=== PATIENT | female | born 1965 | race Caucasian/White ===

== ENCOUNTER 2017-01-08 06:11 | Observation (INO) | payer BC ==
[2017-01-08] VITALS (15 sets, daily range): BP systolic 99–124; BP diastolic 52–69
[~2017-01-08] VITALS: Ht 170.2 cm; Wt 83.6 kg
[~2017-01-08 06:11] MED LIST: AEROCHAMBER1 DEV IH; ALBUTEROL2 PUFFS/17 IN; ESTRACE 2MG. TAB2 MG PO; FLONASE 50 MCG16 GM; MEDROL 4MG. DOSE4 MG PO; MOTRIN 400MG.400 MG PO; MOTRIN 600MG.600 MG PO; NAPROSYN500 M1 PO; NOMEDS *; PERCOCET 5/3251 EACH PO; SULFAMETHOXAZOL1 TA6 PO; ZITHROMAX Z PA250 MG PO; ZOFRAN4 MG PO
--- NOTE | 2017-01-08 09:11 | Operative Note ---
Procedure/Operative Record Procedure Date of procedure: 01/08/17 Pre-Op Dx: Cystocele rectocele, enterocele, vaginal vault prolapse after hysterectomy Post-Op Dx: Cystocele, rectocele, enterocele, vaginal vault prolapse after hysterectomy. Procedure performed: Vaginal vault prolapse, enterocele repair, rectocele repair. Surgeon: Dr. Adam Ashton Stock Mover(s): Vijaya Alejandro Anesthesia: Brandon Long EBL (ml): 250 Clinical note: She is a 51-year-old lady who had an LAVH approximately 3 years ago. She noticed that she had some bulging in the vagina. We attempted to use a pessary however this did not work for her rectocele. As result of that she was offered vaginal vault suspension, enterocele repair, cystocele repair and rectocele repair. Operative findings: She had a grade 2-3 rectocele. She had a large enterocele. The vaginal vault had 's a small amount of prolapse and she just had a grade 1 cystocele. As result of this I elected not to do a cystocele repair. Operative note: She was taken to the operating room where LMA anesthesia was found be adequate. She was prepped and draped in the normal sterile fashion in the lithotomy position. A weighted speculum was placed in vagina. I grasped the anterior vaginal mucosa where the old hysterectomy scar was at the vaginal vault. I then injected approximately 20 mL of 1 percent Xylocaine with epinephrine along the vaginal mucosa. I then made a V shaped incision on the outside of each clamp and joined the 2 incisions anteriorly along the vaginal mucosa. I then opened up posteriorly with Metzenbaum scissors. I then made a wedge shaped incision. I then opened up into the peritoneal cavity within the enterocele sac. I then packed away the bowel with a warm moist pack. The bladder was then dissected off the scar anteriorly. A Simin retractor was placed here to push the bladder out of the way. I then dissected off the vaginal mucosa from the LEFT cardinal ligament. I then palpated the ureter on the LEFT side against the Simin retractor at the 3 o' clock position. I then clamped across the cardinal ligament cut this and suture ligated. It was tagged as well. I then removed the enterocele sac posteriorly. I then grasped the LEFT uterosacral ligament clamp this and cut it. This was then suture-ligated and tagged. Similarly on the patient's RIGHT side I dissected the vaginal mucosa off the cardinal ligament. I then placed my finger through the vagina and palpated the ureter against the Simin retractor in the 9 o'clock position. I then clamped across the cardinal ligament. The redundant tissue was then cut away. This was then suture-ligated and tagged. Similarly I grasped the RIGHT uterosacral ligament this was then cut and suture ligated and tagged. I then placed a Degroot suture using 0 PDS first through the LEFT pararectal fascia. I plicated across the posterior peritoneum and through the RIGHT pararectal fascia. This was then LEFT to be tied. I then placed a similar suture slightly above the suture. I then placed an external Degroot first going through the vaginal mucosa through the LEFT pararectal tissue slightlysuperior to the other 2 Degroot sutures and then out through the vagina mucosa again. Once again this was LEFT to be tied at the end. I then closed the vaginal vault by first grasping the vaginal mucosa anterior at the fornix and including the distal end of the cardinal ligament in this suture. This was then passed through the posterior aspect of the vaginal mucosa and tied. A second suture was placed more medial to the first suture. This was similarly performed on the patient's RIGHT side. I then observed the bladder anteriorly and she just had a very small cystocele so elected not to repair this. I then tied the Degroot sutures in the order in which there were placed.I placed 2 further interrupted sutures of 2-0 Vicryl suture to close the vaginal vault completely. I grasped the posterior vaginal mucosa where the weighted speculum had LEFT [place]. I then made a V-shaped incision into the perineum. I grasped the perineal and vaginal mucosa and using Metzenbaum scissors dissected off a 7 m wide strip of vaginal mucosa dissecting the rectum off the posterior vaginal mucosa. I then joined up with the wedge shaped piece of tissue I previously removed from the vaginal vault. I started with a 2-0 Vicryl suture and placed this at the vaginal vault. Using 2 -0 PDS suture I placed individual sutures into the levator ani muscle bilaterally. Each individual suture was then tied and sutures were placed along the posterior vagina. This closed her rectocele. I placed sutures until I reached the vaginal opening. I then ran the 2-0 Vicryl suture in a running locked fashion and tied it at the vaginal opening. I then closed the deep tissues of the perineum using interrupted 2-0 PDS suture. The perineal skin was then closed with interrupted subcuticular 2-0 Vicryl suture. A Middleton catheter was then placed in the bladder. Clear urine was seen to flow. I then placed a vaginal pack soaked in Hibiclens into the vagina. The patient tolerated the procedure well and was taken to the recovery room in excellent condition. All sponge instrument and needle counts were correct. Estimate a blood loss was approximately 250 mL. Conplications: None Specimens: None at 0911
--- NOTE | 2017-01-08 09:13 | Anesthesia Record ---
Anesthesia Record Part II Discharge time: 934 Destination: Second Floor PACU nurse assessment review? Yes Patient is: Awake, Stable Anesthesia complications? No at 0913
--- NOTE | 2017-01-08 09:13 | Anesthesia Record ---
Anesthesia Record Part I Total IV fluids: 800 EBL (ml): 250 Urine Output: 50 B/P: 119/52 % SaO2: 96 Pulse: 60 Resps: 10 Temp: 97.5 Patient is: Awake, Stable Stable to PACU at: 0905 at 0913
[2017-01-08] MEDS ORDERED: ESTRADIOL1 MG OR (10:14)
[2017-01-08] MEDS ORDERED: SPIRONOLACTONE25 MG NG (10:15)
[2017-01-08 16:13] LABS: HEMOGLOBIN 12.9 g/dL (12.2-16.2)
[2017-01-08 20:16] LABS: URINE BILIRUBIN - DIPSTICK NEGATIVE (NEG); URINE BLOOD TRACE-INTACT (NEG)
[2017-01-09 01:02] VITALS: BP 102/56
[2017-01-09 05:47] LABS: HEMOGLOBIN 11.8 g/dL (12.2-16.2); LYMPH # 2.5 K/mm3 (0.7-4.5); LYMPH % 22.5 % (10-50.0)
--- NOTE | 2017-01-09 09:26 | ACUTE CARE PROGRESS NOTE (QUA) ---
Progress Notes Subjective Date 01/09/17 Time 0858 Note asked to see pt sec to bradycardia-saw pt in her room after surg procedure- pt sitting up in chair with no c/o- she states that her hr is always slow and she has no known ht disease for many years- i reviewed her records back to 2005 and has slow hr with each visit- pt with some thyroid issues in past but to my knowledge not on thyroid meds or betablocker-no chf sx and no chest pain - Patient/family reports: feeling better Nursing reports: low hr Objective Findings Last VS-Temp:98.0 B/P:102/56 Pulse:48 Resp:18 SaO2:99 ROOM AIR Last weight lbs:184 oz:4 K.575 Method:Bed Scales Exam General appearance: alert, no acute distress Eyes: anicteric, PERRLA ENT: dry mucous membranes Neck: no JVD Cardiovascular: bradycardia Respiratory: no respiratory distress ABD: soft Genitourinary: no hematuria Extremities: moves all Musculoskeletal: equal muscle strength Skin: dry Neuro: alert, 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 Bradycardia Patient condition Stable Plan: order additional tests This inpt stay is expected to cross 2 MNs from start of care Yes Comments: discussed with dr marcum and will follow as op with echo and will check thyroid now but no other intervention at this time at 6658
[2017-01-09] MEDS ORDERED: PERCOCET 5/3251 EACH PO (10:19)
[2017-01-09 10:51] VITALS: BP 102/56
--- NOTE | 2017-01-09 18:41 | ACUTE CARE PROGRESS NOTE (QUA) ---
Progress Notes Subjective Date 01/09/17 Time 1000 Note She is doing very well today. She is eating and drinking and ambulating. She is voiding. She denies any chest pain, shortness of breath or calf tenderness. Her pain is well controlled with [id number] analgesics. She is not taking narcotics. Patient/family reports: feeling better, no complaints Objective Findings Last VS-Temp:98.0 B/P:102/56 Pulse:48 Resp:18 SaO2:99 ROOM AIR Last weight lbs:184 oz:4 K.575 Method:Bed Scales Laboratory Tests 01/09/17 0535: TSH 0.44, Thyroxine (T4) 10.0 01/09/17 0535: Sodium 139, Potassium 4.3, Chloride 105, Carbon Dioxide 31, BUN 15, Creatinine 0.5 L, Estimated Creat Clear 180, Estimated GFR (MDRD) 131, Glucose 101, Calcium 8.2 L, WBC 11.1 H, RBC 3.78 L, Hgb 11.8 L, Hct 35.0 L, MCV 92.5, RDW 13.6, Plt Count 203, MPV 9.6, Gran % 69.1, Gran # 7.7, Lymphocytes % 22.5, Monocytes % 6.9, Eosinophils % 1.4, Basophils % 0.2, Lymphocytes # 2.5, Monocytes # 0.8, Eosinophils # 0.2, Basophils # 0.0, PUBS MCHC 33.7, MCH 31.1 01/08/17 1845: Urine Color YELLOW, Urine Appearance CLEAR, Urine pH 6.0, Ur Specific [place] 1.010, Urine Protein NEGATIVE, Urine Ketones NEGATIVE, Urine Blood TRACE-INTACT, Urine Nitrate NEGATIVE, Urine Bilirubin NEGATIVE, Urine Urobilinogen 0.2, Ur Leukocyte Esterase NEGATIVE, Urine RBC OCC, Urine WBC OCC, Ur Squamous Epith Cells NONE, Urine Bacteria 2+, Urine Glucose NEGATIVE Microbiology 01/08 1845 URINE,FO: Urine Culture - RES Exam General appearance: normal appearance, alert, awake, no acute distress Reviewed: vital signs, lab results Assessment/Plan Problem List 1. Bradycardia 2. Vaginal vault prolapse after hysterectomy 3. Cystocele with rectocele 4. Vaginal enterocele Patient condition Improving, Stable Plan: continue current care, initiate discharge plan This inpt stay is expected to cross 2 MNs from start of care No Comments: She is doing very well this morning. We'll plan to send her home today. at 9951
--- NOTE | 2017-01-09 18:43 | Discharge Summary ---
Discharge Summary Admission date: 01/08/17 Discharge date: 01/09/17 Discharge diagnoses: Vaginal vault prolapse, cystocele, rectocele, enterocele Clinical note: She is a 51-year-old lady is had a previous laparoscopic-assisted vaginal hysterectomy. She complained of pressure and vagina. It was noted that she had a grade 2-3 rectocele, grade 1 cystocele and large enterocele. She also had prolapse of the vaginal vault approximately a third of the way along the vagina. As result of that she was offered vaginal repairs. Course in hospital: On January 03 she underwent a vaginal vault suspension with enterocele repair, rectocele repair. She has done well postoperatively and has remained afebrile throughout her hospitalization. She is eating and drinking and ambulating. She is had her Middleton removed and she is voiding well. There was packing in the vagina that was removed on the night of her surgery. She denies any chest pain, she shortness of breath or calf tenderness. Her pain is well controlled with [id number] analgesics. Laboratory Tests 01/08/171844: Urine Color YELLOW, Urine Appearance CLEAR, Urine pH 6.0, Ur Specific [place] 1.010, Urine Protein NEGATIVE, Urine Ketones NEGATIVE, Urine Blood TRACE-INTACT, Urine Nitrate NEGATIVE, Urine Bilirubin NEGATIVE, Urine Urobilinogen 0.2, Ur Leukocyte Esterase NEGATIVE, Urine RBC OCC, Urine WBC OCC, Ur Squamous Epith Cells NONE, Urine Bacteria 2+, Urine Glucose NEGATIVE 01/09/17 0535: Sodium 139, Potassium 4.3, Chloride 105, Carbon Dioxide 31, BUN 15, Creatinine 0.5, Estimated Creat Clear 180, Estimated GFR (MDRD) 131, Glucose 101, Calcium 8.2, WBC 11.1, RBC 3.78, Hgb 11.8, Hct 35.0, MCV 92.5, RDW 13.6, Plt Count 203, MPV 9.6, Gran % 69.1, Gran # 7.7, Lymphocytes % 22.5, Monocytes % 6.9, Eosinophils % 1.4, Basophils % 0.2, Lymphocytes # 2.5, Monocytes # 0.8, Eosinophils # 0.2, Basophils # 0.0, PUBS MCHC 33.7, MCH 31.1 01/09/17 0535: TSH 0.44, Thyroxine (T4) 10.0 Plans for ongoing care: She is discharged home to follow-up with me in approximately 2 weeks' time. Discharge medications She is given a prescription for Percocet 5/325, 30 tablets and she will take [id number] anti-inflammatories as well. DC/follow-up instructions She was given the usual instructions with respect to limiting her activity, driving and sexual activity. Condition at discharge Stable and improved at 8724
--- NOTE | 2017-01-09 18:43 | Discharge Summary ---
Discharge Summary Admission date: 01/08/17 Discharge date: 01/09/17 Discharge diagnoses: Vaginal vault prolapse, cystocele, rectocele, enterocele Clinical note: She is a 51-year-old lady is had a previous laparoscopic-assisted vaginal hysterectomy. She complained of pressure and vagina. It was noted that she had a grade 2-3 rectocele, grade 1 cystocele and large enterocele. She also had prolapse of the vaginal vault approximately a third of the way along the vagina. As result of that she was offered vaginal repairs. Course in hospital: On January 03 she underwent a vaginal vault suspension with enterocele repair, rectocele repair. She has done well postoperatively and has remained afebrile throughout her hospitalization. She is eating and drinking and ambulating. She is had her Middleton removed and she is voiding well. There was packing in the vagina that was removed on the night of her surgery. She denies any chest pain, she shortness of breath or calf tenderness. Her pain is well controlled with [id number] analgesics. Laboratory Tests 01/08/171844: Urine Color YELLOW, Urine Appearance CLEAR, Urine pH 6.0, Ur Specific [place] 1.010, Urine Protein NEGATIVE, Urine Ketones NEGATIVE, Urine Blood TRACE-INTACT, Urine Nitrate NEGATIVE, Urine Bilirubin NEGATIVE, Urine Urobilinogen 0.2, Ur Leukocyte Esterase NEGATIVE, Urine RBC OCC, Urine WBC OCC, Ur Squamous Epith Cells NONE, Urine Bacteria 2+, Urine Glucose NEGATIVE 01/09/17 0535: Sodium 139, Potassium 4.3, Chloride 105, Carbon Dioxide 31, BUN 15, Creatinine 0.5, Estimated Creat Clear 180, Estimated GFR (MDRD) 131, Glucose 101, Calcium 8.2, WBC 11.1, RBC 3.78, Hgb 11.8, Hct 35.0, MCV 92.5, RDW 13.6, Plt Count 203, MPV 9.6, Gran % 69.1, Gran # 7.7, Lymphocytes % 22.5, Monocytes % 6.9, Eosinophils % 1.4, Basophils % 0.2, Lymphocytes # 2.5, Monocytes # 0.8, Eosinophils # 0.2, Basophils # 0.0, PUBS MCHC 33.7, MCH 31.1 01/09/17 0535: TSH 0.44, Thyroxine (T4) 10.0 Plans for ongoing care: She is discharged home to follow-up with me in approximately 2 weeks' time. Discharge medications She is given a prescription for Percocet 5/325, 30 tablets and she will take [id number] anti-inflammatories as well. DC/follow-up instructions She was given the usual instructions with respect to limiting her activity, driving and sexual activity. Condition at discharge Stable and improved at 1677
--- OUTSIDE RECORDS SUMMARY | 2017-02-18 08:49 | External Medical Summary Rpt ---
Demographics Preferred Language Khmer Marital Status Unknown Voodoo Affiliation Unknown Race Unknown Ethnic Group Unknown Author Author ALEX Address Unknown Phone Immunization No patient found.
--- OUTSIDE RECORDS SUMMARY | 2017-02-18 08:49 | External Medical Summary Rpt ---
Demographics Preferred Language Romansh Marital Status Unknown Religion Affiliation Unknown Race Unknown Ethnic Group Unknown Author Author ALEX Address Unknown Phone Immunization No patient found.
== END 2017-01-09 11:00 | disposition home or self-care (01) ==
LOC: SDC 06:11 → OB 06:13 → SDC 07:30 → 2ND 10:19 → OB 14:10
PROVIDERS: Nurse Practitioner Obstetrics & Gynecology
PROC: 0JQC0ZZ Repair Pelvic Region Subcutaneous Tissue and Fascia, Open Approach (ICD-10-PCS; principal; 2017-01-08 07:30)
PROC: 0UQF7ZZ Repair Cul-de-sac, Via Natural or Artificial Opening (ICD-10-PCS; principal; 2017-01-08 07:30)
DX: N99.3 Prolapse of vaginal vault after hysterectomy (principal); N81.6 Rectocele; I97.89 Other postprocedural complications and disorders of the circulatory system, not elsewhere classified
CPT/HCPCS: G0238; G0378; J0131; J2405

== ENCOUNTER → 2017-02-08 | Outpatient (CLI) | payer BC ==
[~2017-02-08] MED LIST changes: +ESTRADIOL1 MG OR; +SPIRONOLACTONE25 MG NG
== END ==
LOC: LAB 08:20
DX: E04.2 Nontoxic multinodular goiter (principal)